=== PATIENT | female | born 1985 | race Native Hawaiian/Other Pacific Islander ===

== ENCOUNTER → 2020-12-07 | Outpatient (CLI) | payer BC ==
--- NOTE | 2020-12-07 11:27 | Diagnostic Imaging Report ---
INDICATION: anatomic survey. TECHNIQUE: Multiple real-time grayscale images were obtained over the gravid uterus. COMPARISON: None CLINICAL DATES: Gestational age 20 weeks, 2 days, with an DOLLY of 04/24/2021 Number: Single live intrauterine Presentation: Cephalic Placenta: Posterior and low-lying Amniotic Fluid: JAIMIE is within normal limits. The total JAIMIE is 12.9 cm. The largest vertical pocket is 4.4 cm. Biometrical measurements are as follows: Biparietal 4.52 cm, age 19 weeks 5 days. Head circumference 17.37 cm, age 20 weeks 0 days. Abdominal circumference 14.49 cm, age 19 weeks 6 days. Femur length 3.17 cm, age 19 weeks 6 days. Sonographic estimate age: 19 weeks 6 days. Sonographic estimated date of delivery: 04/27/2021. Estimated Weight: 316 gm (+/- 46 gm). LMP percentile: 23%. heart rate: 146 beats per minute. number: 1 of 1. Cerebellum: visualized Lateral ventricles: visualized Cavum septum pellucidum: visualized Nasal Bone: visualized Face: visualized Stomach: visualized Kidneys: visualized Bladder: visualized Three vessel cord: visualized Cord insertion: visualized 4 chamber heart: visualized outflow tracts: Not well visualized Spine, upper: visualized Spine, lower: visualized Upper extremities: visualized Lower extremities: visualized Hands: Visualized, however not all fingers are well seen. Feet: Visualized, however not all toes are well seen. The cervical length measures 5.5 cm. No evidence of funneling. The bilateral adnexa have a normal appearance. No evidence of mass or free fluid. IMPRESSION: 1. Single live intrauterine at approximately 19 weeks, 6 days, with an DOLLY of 04/27/2021. These are within range with clinical dates. 2. The outflow tracts are not well visualized due to position. Otherwise, anatomic structures are visualized and have a normal appearance. Recommend followup as indicated. 3. Posterior and low lying placenta without evidence of previa. Recommend attention on followup. Dictated by: Dictated on workstation # [id number]
== END ==
LOC: RAD 09:15
PROVIDERS: ATTEND Obstetrics & Gynecology
DX: Z34.02 Encounter for supervision of normal first pregnancy, second trimester (principal); Z3A.19 19 weeks gestation of pregnancy
CPT/HCPCS: 76805

== ENCOUNTER 2021-04-19 06:05 | Inpatient (IN) | payer BC ==
[2021-04-19] VITALS (45 sets, daily range): BP systolic 85–144; BP diastolic 49–77
[2021-04-19 06:48] LABS: BILIRUBIN,URINE NEGATIVE (NEGATIVE); CLARITY,URINE CLEAR; COLOR,URINE YELLOW; GLUCOSE, URINE (UA) NEGATIVE (NEGATIVE); KETONES,URINE NEGATIVE (NEGATIVE); LEUKOCYTE ESTERASE ,URINE 1+ (NEGATIVE); NITRITE,URINE NEGATIVE (NEGATIVE); PROTEIN,URINE NEGATIVE (NEGATIVE)
[2021-04-19 06:53] LABS: BASOPHILS % (AUTO) 0 % (0-10); EOSINOPHILS % (AUTO) 1 % (0-10); HEMATOCRIT 37 % (35-52); HEMOGLOBIN 12.5 g/dL (11.5-16.0); LYMPHOCYTES # (AUTO) 0.9 10^3/uL (1.0-4.0); LYMPHOCYTES % (AUTO) 14 % (12-44); MEAN CORPUSCULAR HEMOGLOBIN 30 pg (25-34); MEAN CORPUSCULAR HGB CONC 34 g/dL (32-36); MEAN CORPUSCULAR VOLUME 89 fL (80-99); MEAN PLATELET VOLUME 9.7 fL (9.0-12.2); MONOCYTES # (AUTO) 0.5 10^3/uL (0.0-1.0); MONOCYTES % (AUTO) 8 % (0-12); NEUTROPHILS # (AUTO) 5.3 10^3/uL (1.8-7.8); NEUTROPHILS % (AUTO) 77 % (42-75); PLATELET COUNT 260 10^3/uL (130-400); WHITE BLOOD COUNT 6.9 10^3/uL (4.3-11.0)
[2021-04-19 07:11] LABS: BACTERIA,URINE TRACE /HPF
[2021-04-19] MEDS: D5 LR IV SOLUTION 1,000 ML IV SCH ×2 (07:35→13:14)
[2021-04-19] MEDS ORDERED: OXYTOCIN PRE-MIX DRIP 500 ML IV SCH (08:30)
--- NOTE | 2021-04-19 09:33 | History & Physical-OB ---
LIANE TINOCO A MED STUDENT 04/19/21 0933: OB - Chief Complaint & HPI Date/Time Date of Admission: Date of Admission: Apr 19, 2021 at 06:05 Date seen by a Provider: Apr 19, 2021 Chief Complaint/History OB-Reason for Admission/Chief: Induction of Labor Hx : 3 Hx Para: 1 Expected Date of Delivery: Apr 24, 2021 Gestational Age in Weeks: 39 Gestational Age in Days: 2 Indication for induction: other (39 weeks gestation) History of Labs GBS negative, Rubella Non-Immune Allergies and Home Medications Allergies Coded Allergies: No Known Drug Allergies (Unverified , 04/19/21) Home Medications No Active Prescriptions or Reported Meds OB - History Hx of Present Care: Yes Ultrasounds: Normal mid trimester US Obstetrical Complications: None Medical Complications: None Obstetrical History Hx : 3 Hx Para: 1 Hx # Term Pregnancies: 1 Hx # Pregnancies: 0 Number of Living Children: 1 Hx Termination: No Hx Total # of Abortions (Spona: 1 OB - Admission Exam Physical Exam Vitals: Vital Signs 04/19/21 04/19/21 06:25 08:00 Temp 37.0 Pulse 83 Resp 18 B/P (MAP) 113/51 (71) Pulse Ox 97 O2 Delivery Room Air HEENT: NCAT Heart: Rhythm Normal Abdomen: Gravid Cervical Dilatation: 2cm Effacement: Other (60%) Station: -1 Membranes: Ruptured (AROM) Heart Rate: 150's (Moderate variability) Wilson Scoring Tool (Modified) Dilation (cm): 1-2cm (1) Effacement (%): 51-79% (2) Descent/Station: -1,0 (2) Cervix Consistency: Soft (2) Cervix Position: Anterior (2) Add 1 point for: Each previous vaginal delivery (1) Wilson Score: 10 Labs Laboratory Tests Test 04/19/21 06:20 04/19/21 06:30 Range/Units Urine Color YELLOW Urine Clarity CLEAR Urine pH 7.0 5-9 Urine Specific [place] 1.015 L 1.016-1.022 Urine Protein NEGATIVE NEGATIVE Urine Glucose (UA) NEGATIVE NEGATIVE Urine Ketones NEGATIVE NEGATIVE Urine Nitrite NEGATIVE NEGATIVE Urine Bilirubin NEGATIVE NEGATIVE Urine Urobilinogen 0.2 < = 1.0 MG/DL Urine Leukocyte Esterase 1+ H NEGATIVE Urine RBC (Auto) NEGATIVE NEGATIVE Urine RBC NONE /HPF Urine WBC 2-5 /HPF Urine Squamous Epithelial Cells 2-5 /HPF Urine Crystals NONE /LPF Urine Bacteria TRACE /HPF Urine Casts NONE /LPF Urine Mucus NEGATIVE /LPF Urine Culture Indicated NO White Blood Count 6.9 4.3-11.0 10^3/uL Red Blood Count 4.17 3.80-5.11 10^6/uL Hemoglobin 12.5 11.5-16.0 g/dL Hematocrit 37 35-52 % Mean Corpuscular Volume 89 80-99 fL Mean Corpuscular Hemoglobin 30 25-34 pg Mean Corpuscular Hemoglobin Concent 34 32-36 g/dL Red Cell Distribution Width 12.9 10.0-14.5 % Platelet Count 260 130-400 10^3/uL Mean Platelet Volume 9.7 9.0-12.2 fL Immature Granulocyte % (Auto) 1 % Neutrophils (%) (Auto) 77 H 42-75 % Lymphocytes (%) (Auto) 14 12-44 % Monocytes (%) (Auto) 8 0-12 % Eosinophils (%) (Auto) 1 0-10 % Basophils (%) (Auto) 0 0-10 % Neutrophils # (Auto) 5.3 1.8-7.8 10^3/uL Lymphocytes # (Auto) 0.9 L 1.0-4.0 10^3/uL Monocytes # (Auto) 0.5 0.0-1.0 10^3/uL Eosinophils # (Auto) 0.0 0.0-0.3 10^3/uL Basophils # (Auto) 0.0 0.0-0.1 10^3/uL Immature Granulocyte # (Auto) 0.0 0.0-0.1 10^3/uL OB - Assessment/Plan/Diagnosis Assessment Assessment: induction of labor (39 weeks gestation) Admission Dx Induction of Labor Admission Status: Inpatient Order (span 2 midnights) Reason for Inpatient Admission: Induction of Labor Plan Plan: Induction Induction Method: per Pitocin Protocol (AROM) ABIMAEL DOMINIQUE DO 04/19/21 1626: OB - Chief Complaint & HPI Date/Time Date seen by a Provider: Apr 19, 2021 Time Seen by a Provider: 07:30 Chief Complaint/History OB-Reason for Admission/Chief: Induction of Labor Hx : 3 Hx Para: 1 Expected Date of Delivery: Apr 24, 2021 Gestational Age in Weeks: 39 Gestational Age in Days: 2 Admission Nurse Assessment Rev: Yes Allergies and Home Medications Allergies Coded Allergies: No Known Drug Allergies (Unverified , 04/19/21) Home Medications No Active Prescriptions or Reported Meds Patient Home Medication List Home Medication List Reviewed: Yes OB - History Hx of Present Care: Yes Ultrasounds: Normal mid trimester US Obstetrical Complications: None Medical Complications: None Patient Past Medical History n/a OB - Admission Exam Physical Exam HEENT: NCAT Heart: Rhythm Normal Lungs: Clear Abdomen: Gravid Extremities: Normal Reflexes: Normal Cervical Dilatation: 2cm Effacement: 75% Station: -1 Membranes: Intact Heart Rate: 130's Accelerations: Accelerations Present Decelerations: No Decelerations Short Term Variability: Present Hospital Technician Variability: Average (6-25) Contractions on Admission: 6-10 Minutes Apart Intensity: Mild Wilson Scoring Tool (Modified) Dilation (cm): 3-4cm (2) Effacement (%): 51-79% (2) Descent/Station: -1,0 (2) Cervix Consistency: Soft (2) Cervix Position: Anterior (2) Wilson Score: 11 OB - Assessment/Plan/Diagnosis Assessment Assessment: induction of labor Admission Dx 35 yo @ 39 week Induction of labor Admission Status: Inpatient Order (span 2 midnights) Reason for Inpatient Admission: IOL at 39 weeks Plan Induction Method: per Pitocin Protocol (AROM) LIANE TINOCO MED STUDENT Apr 19, 2021 09:33 ABIMAEL DOMINIQUE DO Apr 19, 2021 16:26
[2021-04-19] MEDS ORDERED: fentaNYL 2 mcg/ml BUPIVA 0.125 100 ML ONE (12:02)
[2021-04-19] MEDS ORDERED: fentaNYL INJ 100 MCG/2 ML AMP ONE (12:24)
[2021-04-19] MEDS ORDERED: BUPIVACAINE 0.25% 30 ML (SENSORCAINE) VIAL ONE (12:24)
[2021-04-19] MEDS ORDERED: NALOXONE 0.4 MG/ML 1 ML (NARCAN) VIAL IV PRN (12:30)
[2021-04-19] MEDS ORDERED: fentaNYL 2 mcg/ml BUPIVA 0.125 100 ML IV SCH (12:30)
[2021-04-19] MEDS ORDERED: LACTATED RINGERS 1,000 ML IV ONE (12:30)
[2021-04-19] MEDS ORDERED: CATHETER FLUSH 10 ML SYR IV PRN (12:30)
[2021-04-19] MEDS ORDERED: CATHETER FLUSH 10 ML SYR IV SCH ×2 (14:00→22:00)
[2021-04-19] MEDS ORDERED: LIDOCAINE/EPI 2% 1:200,00 (XYLOCAINE) 20 ML VIAL ONE (15:55)
[2021-04-19] MEDS ORDERED: HYDROcodone/APAP 5 MG/325 MG (LORTAB) TAB PO PRN (16:30)
[2021-04-19] MEDS ORDERED: BENZOCAINE/MENTHOL (DERMOPLAST) 56 ML CAN TP PRN (16:30)
[2021-04-19] MEDS ORDERED: WITCH HAZEL(TUCKS) 40 EA JAR TOP PRN (16:30)
[2021-04-19] MEDS ORDERED: TETANUS,DIPTH,PERTUSS P/F (BOOSTRIX) 0.5 ML VIAL IM ONE (16:30)
[2021-04-19] MEDS ORDERED: DIBUCAINE 1% OINTMENT 30 GM TUBE TOP PRN (16:30)
[2021-04-19] MEDS ORDERED: MEASLES,MUMPS,RUBELLA 1 EA INJ SQ ONE (16:30)
--- NOTE | 2021-04-19 16:31 | OB Labor & Delivery Record ---
L&D History Date of Service Date of Service: Apr 19, 2021 History Expected Date of Delivery: Apr 24, 2021 Gestational Age in Weeks: 39 Hx : 3 Hx Para: 1 Complications Events: Routine care Operative Indications (Cesarea: N/A-Vaginal Delivery Intrapartal Events: None L&D Stage1 Stage One Onset of Labor - Date: Apr 19, 2021 Monitors and Tracing Monitor Mode: External Heart Rate: 130 Monitor Accelerations: Uniform Monitor Decelerations: None Station: -1 Rn Dialysis Variability: Average (6-10) Short Term Variability: Present Presentation: Vertex Vital Signs VS - Last 72 Hours, by Label 04/19/21 04/19/21 04/19/21 04/19/21 06:25 06:25 08:00 08:45 Temp 37.0 37.0 37.0 Pulse 82 82 83 84 Resp 18 18 18 18 B/P (MAP) 116/64 (81) 113/51 (71) 105/65 (78) Pulse Ox 97 97 O2 Delivery Room Air 04/19/21 04/19/21 04/19/21 04/19/21 09:00 09:15 09:30 09:45 Pulse 82 78 82 Resp 18 18 18 B/P (MAP) 103/64 (77) 119/69 (86) 106/65 (79) 04/19/21 04/19/21 04/19/21 04/19/21 10:00 10:15 10:30 10:45 Pulse 74 76 75 74 Resp 18 18 18 18 B/P (MAP) 108/65 (79) 128/77 (94) 103/62 (76) 103/65 (78) 04/19/21 04/19/21 04/19/21 04/19/21 11:00 11:15 11:30 11:45 Temp 36.8 Pulse 79 78 77 73 Resp 18 18 18 18 B/P (MAP) 109/66 (80) 102/67 (79) 115/65 (82) 112/65 (81) 04/19/21 04/19/21 04/19/21 04/19/21 12:00 12:15 12:30 12:40 Pulse 73 75 85 Resp 18 18 18 B/P (MAP) 125/73 (90) 120/72 (88) 116/73 (87) Pulse Ox 98 04/19/21 04/19/21 04/19/21 04/19/21 12:45 12:50 12:53 12:56 Temp 37.0 Pulse 83 76 102 75 Resp 18 18 18 18 B/P (MAP) 109/55 (73) 98/55 (69) 101/55 (70) 94/50 (65) Pulse Ox 99 98 99 99 04/19/21 04/19/21 04/19/21 04/19/21 13:00 13:02 13:05 13:08 Pulse 75 75 73 68 Resp 18 18 18 18 B/P (MAP) 94/52 (66) 87/52 (64) 95/55 (68) 102/59 (73) Pulse Ox 97 99 99 99 04/19/21 04/19/21 04/19/21 04/19/21 13:10 13:15 13:30 13:45 Pulse 64 79 70 73 Resp 18 18 18 18 B/P (MAP) 110/56 (74) 98/49 (65) 91/55 (67) Pulse Ox 98 98 97 96 04/19/21 04/19/21 04/19/21 04/19/21 14:00 14:15 14:30 14:45 Temp 37.3 Pulse 77 77 67 76 Resp 18 18 18 18 B/P (MAP) 94/52 (66) 92/54 (67) 85/53 (64) 100/57 (71) Pulse Ox 96 04/19/21 04/19/21 15:00 15:15 Pulse 78 65 Resp 18 18 B/P (MAP) 106/66 (79) 100/63 (75) Rupture of Membranes Spontaneous Ruture of Membrane: No Amniotic Membrane Rupture Time: 1130 Amniotic Membrane Fluid Desc.: Clear Vaginal Bleeding Description: Normal Show Induction/Anesthesia Epidural Cath Placement - Time: 1238 Progress/Notes Patient admitted AROM performed this AM and pitocin augmentation started. She received an epidural and progressed to complete and +2 station with max dose of 12 mu pitocin reached. L&D Stage2 Stage Two Stage II Date: Apr 19, 2021 Monitors and Tracing Monitor Mode: External Heart Rate: 130 Monitor Accelerations: Uniform Monitor Decelerations: Early Rn Dialysis Variability: Average (6-10) Short Term Variability: Present Position: Right Occiput Anterior Presentation: Vertex Cord Descript/Complications Cord Vessel Description: 3 Vessels Delivery Type Infant Delivery Method: Spontaneous Vaginal Anterior Shoulder: Left, Right Episiotomy/Perineal Laceration Laceraction(s)/Extensions: Yes Episiotomy Description: Perineal Extension/lac, 2nd degree Degree (describe repair) 2nd degree perineal laceration repaired using 3-0 rapide in usual fashion. Condition of Infant Delivery 1 minute Comment: 8 5 minute Comment: 9 Notes Live female weight 6lbs 8 oz Condition of Condition of : Living Exam: No Observed Abnormalities Resuscitation Resuscitation: N/A - Spontaneous Resp L&D Stage3 Stage Three Stage III Date: Apr 19, 2021 Pictocin Pitocin Administration mu/min: 12 Pitocin ml/hr: 12 Pitocin Administration Comment: 1450 pitocin increased Placenta Delivery Placenta Delivery: Spontaneous Delivery Summary Summary Estimated blood loss (mL): 200 Attending at delivery: Abimael Dominique DO Condition of Delivery Examined: Cervix Examined, Uterus Explored Post Hemorrhage: No Condition of Mother stable Condition of (s) stable ABIMAEL DOMINIQUE DO Apr 19, 2021 16:31
[2021-04-19] MEDS: OXYTOCIN PRE-MIX DRIP 500 ML IV SCH (17:25)
[2021-04-19] MEDS: IBUPROFEN 600 MG (MOTRIN) TAB PO SCH (17:25)
[2021-04-20 00:19] VITALS: BP 125/65
[2021-04-20] MEDS: IBUPROFEN 600 MG (MOTRIN) TAB PO SCH ×4 (00:19→17:58)
[2021-04-20] MEDS: DOCUSATE SODIUM 100 MG (COLACE) CAP PO SCH ×2 (00:19→10:08)
[2021-04-20 06:17] LABS: BASOPHILS % (AUTO) 0 % (0-10); EOSINOPHILS # (AUTO) 0.1 10^3/uL (0.0-0.3); EOSINOPHILS % (AUTO) 1 % (0-10); HEMATOCRIT 36 % (35-52); HEMOGLOBIN 11.7 g/dL (11.5-16.0); LYMPHOCYTES # (AUTO) 1.3 10^3/uL (1.0-4.0); LYMPHOCYTES % (AUTO) 11 % (12-44); MEAN CORPUSCULAR HEMOGLOBIN 30 pg (25-34); MEAN CORPUSCULAR HGB CONC 33 g/dL (32-36); MEAN CORPUSCULAR VOLUME 91 fL (80-99); MONOCYTES # (AUTO) 0.8 10^3/uL (0.0-1.0); MONOCYTES % (AUTO) 7 % (0-12); NEUTROPHILS # (AUTO) 9.6 10^3/uL (1.8-7.8); NEUTROPHILS % (AUTO) 81 % (42-75); PLATELET COUNT 236 10^3/uL (130-400); WHITE BLOOD COUNT 11.8 10^3/uL (4.3-11.0)
[2021-04-20 06:22] VITALS: BP 92/50
[2021-04-20] MEDS ORDERED: FERROUS SULF 325 MG (IRON) TAB PO SCH (09:00)
--- NOTE | 2021-04-20 09:01 | Postpartum Progress Note ---
Note Note Day # 1 Subjective: Patient is without complaints. Ambulating, voiding. Tolerating a regular diet without nausea or vomiting. Normal lochia. Pain is well controlled with oral pain medications. Objective: Physical Exam: General - Alert and oriented, no apparent distress Abdomen - Soft, appropriately tender to palpation, non-distended, fundus firm at umbilicus Extremities - no edema, negative Magno's bilaterally Assessment: PPD 1 NVD Plan: Routine care. Encourage breast feeding. Encourage ambulation. Ferrous sulfate supplementation. Plan for discharge today Vitals - Labs Vital Signs - I&O Vital Signs Date Time Temp Pulse Resp B/P (MAP) Pulse Ox O2 Delivery O2 Flow Rate FiO2 04/20/21 06:22 37.0 63 18 92/50 (64) 97 04/20/21 00:19 36.8 71 18 125/65 (85) 97 04/19/21 19:30 36.7 86 18 104/53 (70) 96 04/19/21 17:36 94 18 128/69 (88) 04/19/21 17:22 86 18 144/65 (91) 04/19/21 17:06 81 18 114/77 (89) 04/19/21 16:51 81 18 114/70 (85) 04/19/21 16:36 36.9 99 18 117/74 (88) 04/19/21 16:21 37.5 82 18 108/67 (81) 04/19/21 16:09 85 18 121/62 (81) 04/19/21 16:00 78 18 101/57 (72) 04/19/21 15:45 81 18 108/68 (81) 04/19/21 15:30 71 18 102/62 (75) 04/19/21 15:15 65 18 100/63 (75) 04/19/21 15:00 78 18 106/66 (79) 04/19/21 14:45 37.3 76 18 100/57 (71) 04/19/21 14:30 67 18 85/53 (64) 04/19/21 14:15 77 18 92/54 (67) 04/19/21 14:00 77 18 94/52 (66) 96 04/19/21 13:45 73 18 91/55 (67) 96 04/19/21 13:30 70 18 98/49 (65) 97 04/19/21 13:15 79 18 98 04/19/21 13:10 64 18 110/56 (74) 98 04/19/21 13:08 68 18 102/59 (73) 99 04/19/21 13:05 73 18 95/55 (68) 99 04/19/21 13:02 75 18 87/52 (64) 99 04/19/21 13:00 75 18 94/52 (66) 97 04/19/21 12:56 75 18 94/50 (65) 99 04/19/21 12:53 102 18 101/55 (70) 99 04/19/21 12:50 76 18 98/55 (69) 98 04/19/21 12:45 37.0 83 18 109/55 (73) 99 04/19/21 12:40 85 18 116/73 (87) 98 04/19/21 12:30 75 18 120/72 (88) 04/19/21 12:15 73 18 125/73 (90) 04/19/21 12:00 04/19/21 11:45 73 18 112/65 (81) 04/19/21 11:30 36.8 77 18 115/65 (82) 04/19/21 11:15 78 18 102/67 (79) 04/19/21 11:00 79 18 109/66 (80) 04/19/21 10:45 74 18 103/65 (78) 04/19/21 10:30 75 18 103/62 (76) 04/19/21 10:15 76 18 128/77 (94) 04/19/21 10:00 74 18 108/65 (79) 04/19/21 09:45 04/19/21 09:30 82 18 106/65 (79) 04/19/21 09:15 78 18 119/69 (86) I & O 04/20/21 07:00 Intake Total 2000 ml Balance 2000 ml Labs Laboratory Tests 04/20/21 05:28: White Blood Count 11.8H, Red Blood Count 3.92, Hemoglobin 11.7, Hematocrit 36, Mean Corpuscular Volume 91, Mean Corpuscular Hemoglobin 30, Mean Corpuscular Hemoglobin Concent 33, Red Cell Distribution Width 12.9, Platelet Count 236, Mean Platelet Volume 10.0, Immature Granulocyte % (Auto) 0, Neutrophils (%) (Auto) 81H, Lymphocytes (%) (Auto) 11L, Monocytes (%) (Auto) 7, Eosinophils (%) (Auto) 1, Basophils (%) (Auto) 0, Neutrophils # (Auto) 9.6H, Lymphocytes # (Auto) 1.3, Monocytes # (Auto) 0.8, Eosinophils # (Auto) 0.1, Basophils # (Auto) 0.0, Immature Granulocyte # (Auto) 0.1 ABIMAEL DOMINIQUE DO Apr 20, 2021 09:01
--- NOTE | 2021-04-20 09:18 | Discharge Inst-Women's Service ---
Discharge Inst-Women's Serv Depart Medication/Instructions New, Converted or Re-Newed RX: RX on Chart Final Diagnosis PPD 1 NVD Problems Reviewed?: Yes Consults/Follow Up Additional Follow Up: Yes Orders/Referrals Dr. Dominique in 6 weeks Activity Activity: Activity as Tolerated Driving Instructions: No Driving for 1 Week NO SMOKING: NO SMOKING Nothing Inside Vagina: No Douching, No [place], No Tampons Diet Discharge Diet: No Restrictions Symptoms to Report to : Bleeding Excessive, Pain Increased, Fever Over 101 Degrees F, Vaginal Bleeding Increase, Questions/Concerns For Any Problems or Questions: Contact Your Physician ABIMAEL DOMINIQUE DO Apr 20, 2021 09:18
[2021-04-20] MEDS ORDERED: DCS100C PO (09:20)
[2021-04-20] MEDS ORDERED: DIBU30OI TOP (09:20)
[2021-04-20] MEDS ORDERED: BENZ78AE5 TP (09:20)
[2021-04-20] MEDS ORDERED: IBUP-844 PO (09:20)
[2021-04-20] MEDS ORDERED: FERR325T24 PO (09:20)
[2021-04-20] MEDS ORDERED: ACHD5005 PO (09:20)
[2021-04-20 09:30] VITALS: BP 115/68
[2021-04-20] MEDS ORDERED: MEASLES,MUMPS,RUBELLA 1 EA INJ ONE (12:20)
[2021-04-20 12:30] VITALS: BP 115/79
--- NOTE | 2021-04-20 15:00 | Anesthesia-Regional Post-Op ---
Regional Patient Condition Mental Status: Alert, Oriented x3 Circulation: Same as Pre-Op Headache: Absent Sensation: Full Recovery Motor Block: Absent Post Op Complications Complications None Follow Up Care/Instructions Patient Instructions None needed. Anesthesia/Patient Condition Patient is doing well, no complaints, stable vital signs, no apparent adverse anesthesia problems. No complications reported per nursing. TERE HASSAN CRNA Apr 20, 2021 15:00
[2021-04-20 16:30] VITALS: BP 124/78
[2021-04-20 18:40] VITALS: BP 124/78
== END 2021-04-20 18:40 | disposition home or self-care (01) | DRG 807 ==
LOC: LDRP 06:05
PROVIDERS: ADMIT Obstetrics & Gynecology; ATTEND Obstetrics & Gynecology
PROC: 10E0XZZ Delivery of Products of Conception, External Approach (ICD-10-PCS; principal; 2021-04-19)
PROC: 0KQM0ZZ Repair Perineum Muscle, Open Approach (ICD-10-PCS; 2021-04-19)
PROC: 10907ZC Drainage of Amniotic Fluid, Therapeutic from Products of Conception, Via Natural or Artificial Opening (ICD-10-PCS; 2021-04-19)
DX: O70.1 Second degree perineal laceration during delivery (principal); Z37.0 Single live birth; Z3A.39 39 weeks gestation of pregnancy
CPT/HCPCS: 36415; 81000; 85025; 86850; 86900; 86901; 90707

== ENCOUNTER → 2023-04-28 | Outpatient (CLI) | payer BC ==
[~2023-04-28] MED LIST: ACHD5005 PO; BENZ78AE5 TP; DIBU30OI TOP; DOCU-239 PO; FERR325T24 PO; IBUP-1773 PO; IBUP-844 PO
--- NOTE | 2023-04-28 13:43 | Diagnostic Imaging Report ---
PROCEDURE: Pelvic comp/transvaginal sonogram. TECHNIQUE: Complete transabdominal and transvaginal pelvic ultrasound was performed. In addition, limited pelvic Doppler was performed. INDICATION: Abnormal uterine bleeding. No prior studies are available for comparison. FINDINGS: Uterus is anteverted measuring 8.8 x 3.6 x 4.6 cm. Endometrium is 4 mm in thickness. No myometrial mass is detected. Right ovary measures 2.8 x 0.8 x 1.5 cm, and the left ovary measures 1.5 x 1.0 x 1.7 cm. Both ovaries demonstrate blood flow. No adnexal mass or free pelvic fluid is detected. IMPRESSION: Unremarkable transabdominal and transvaginal pelvic ultrasound with limited pelvic Doppler. Dictated by: Dictated on workstation # [id number]
== END ==
LOC: RAD 12:03
PROVIDERS: ATTEND Obstetrics & Gynecology
DX: N93.9 Abnormal uterine and vaginal bleeding, unspecified (principal)
CPT/HCPCS: 76830; 76856

== ENCOUNTER 2023-06-16 05:31 | Outpatient (CLI) | payer BC ==
[~2023-06-16] VITALS: Ht 165.1 cm; Wt 95.0 kg
== END 2023-06-16 15:58 | disposition home or self-care (01) ==
LOC: PREOP 05:31
PROVIDERS: ATTEND Obstetrics & Gynecology
DX: Z01.818 Encounter for other preprocedural examination (principal)

== ENCOUNTER 2023-06-23 05:49 | Day surgery (SDC) | payer BC ==
[2023-06-23] VITALS (11 sets, daily range): BP systolic 93–131; BP diastolic 57–91
[~2023-06-23] VITALS: Ht 165.1 cm; Wt 95.0 kg
[2023-06-23] MEDS ORDERED: LACTATED RINGERS 1,000 ML 1,000 ML IV PRN (06:45)
[2023-06-23] MEDS ORDERED: proPOfol INJECTION 200 MG/20 ML VIAL IV ONE (07:01)
[2023-06-23] MEDS ORDERED: LIDOCAINE PF 2% 5 ML VIAL ONE (07:01)
[2023-06-23] MEDS ORDERED: dexAMETHasone INJ 10 MG/ML 1 ML VIAL ONE (07:01)
[2023-06-23] MEDS ORDERED: ONDANSETRON INJECTION 4 MG/2 ML (SDV) ONE (07:01)
[2023-06-23] MEDS ORDERED: fentaNYL INJECTION 100 MCG/2 ML VIAL ONE (07:02)
[2023-06-23] MEDS ORDERED: MIDAZOLAM INJ 2 MG/2 ML VIAL ONE (07:02)
[2023-06-23] MEDS ORDERED: BUPIVACAINE 0.25% 30 ML VIAL ONE (07:04)
--- NOTE | 2023-06-23 07:11 | Progress Note-Pre Operative ---
Pre-Operative Progress Note Date of Available H&P: Jun 23, 2023 Date H&P Reviewed: Jun 23, 2023 Time H&P Reviewed: 07:10 History & Physical: H&P Reviewed, Patient Examed, No changes noted Pre-Operative Diagnosis: ADENIKEB-ABIMAEL Robin DO Jun 23, 2023 07:11
[2023-06-23] MEDS ORDERED: ACHD5005 PO (07:13)
[2023-06-23] MEDS ORDERED: IBUP-1773 PO (07:13)
--- NOTE | 2023-06-23 07:13 | Discharge Inst-Women's Service ---
Discharge Inst-Women's Serv Depart Medication/Instructions New, Converted or Re-Newed RX: Transmitted to Pharmacy Problems Reviewed?: Yes Consults/Follow Up Additional Follow Up: Yes Activity Activity: Activity as Tolerated Driving Instructions: You May Drive (no driving today) NO SMOKING: NO SMOKING Nothing Inside Vagina: No Douching, No [place], No Tampons Diet Discharge Diet: No Restrictions Symptoms to Report to : Bleeding Excessive, Pain Increased, Fever Over 101 Degrees F, Vaginal Bleeding Increase, Questions/Concerns Increased amounts of clear to brown appearing discharge is normal during healing process. For Any Problems or Questions: Contact Your Physician ABIMAEL DOMINIQUE DO Jun 23, 2023 07:13
[2023-06-23] MEDS ORDERED: HYDROcodone/ACETAMINOPHEN 5 MG/325 MG TABLET PO PRN (07:15)
[2023-06-23] MEDS ORDERED: D5 LR 1,000 ML IV SOLN 1,000 ML IV SCH (07:15)
[2023-06-23] MEDS ORDERED: ONDANSETRON INJECTION 4 MG/2 ML (SDV) IVP PRN ×2 (07:15→08:15)
[2023-06-23] MEDS ORDERED: KETOROLAC INJ 30 MG/ML VIAL IVP ONE (07:15)
[2023-06-23 07:24] LABS: BASOPHILS # (AUTO) 0.1 10^3/uL (0.0-0.1); BASOPHILS % (AUTO) 1 % (0-10); EOSINOPHILS # (AUTO) 0.1 10^3/uL (0.0-0.3); EOSINOPHILS % (AUTO) 2 % (0-10); HEMATOCRIT 41 % (35-52); HEMOGLOBIN 13.7 g/dL (11.5-16.0); LYMPHOCYTES # (AUTO) 1.2 10^3/uL (1.0-4.0); LYMPHOCYTES % (AUTO) 24 % (12-44); MEAN CORPUSCULAR HEMOGLOBIN 29 pg (25-34); MEAN CORPUSCULAR HGB CONC 34 g/dL (32-36); MEAN CORPUSCULAR VOLUME 86 fL (80-99); MEAN PLATELET VOLUME 9.6 fL (9.0-12.2); MONOCYTES # (AUTO) 0.5 10^3/uL (0.0-1.0); MONOCYTES % (AUTO) 10 % (0-12); NEUTROPHILS % (AUTO) 63 % (42-75); PLATELET COUNT 244 10^3/uL (130-400); WHITE BLOOD COUNT 4.8 10^3/uL (4.3-11.0)
[2023-06-23] MEDS ORDERED: SEVOFLURANE (ULTANE) 15 ML INHAL SOLN ONE (07:51)
--- NOTE | 2023-06-23 08:12 | Anesthesia-General Post-Op ---
General Patient Condition Mental Status/LOC: Same as Preop Cardiovascular: Satisfactory Nausea/Vomiting: Absent Respiratory: Satisfactory Pain: Controlled Complications: Absent Post Op Complications Complications None Follow Up Care/Instructions Patient Instructions None needed. Anesthesia/Patient Condition Patient Condition Patient is doing well, no complaints, stable vital signs, no apparent adverse anesthesia problems. No complications reported per nursing. ANALILIA JUNIOR DO Jun 23, 2023 08:12
[2023-06-23] MEDS ORDERED: morphine INJ 10 MG/ML 1ML (SYR OR VIAL) IVP ONE (08:15)
[2023-06-23] MEDS ORDERED: BUPIVACAINE 0.25% 30 ML VIAL INJ ONE (08:23)
--- NOTE | 2023-06-23 18:02 | OPERATIVE REPORT ---
DATE OF SERVICE: 06/23/2023 PREOPERATIVE DIAGNOSES: 1. A 38-year-old female with abnormal uterine bleeding. 2. History of tubal ligation. POSTOPERATIVE DIAGNOSES: 1. A 38-year-old female with abnormal uterine bleeding. 2. History of tubal ligation. PROCEDURE: D and C, hysteroscopy with Camila endometrial ablation. SURGEON: Laith Vila DO ANESTHESIA: LMA general. ESTIMATED BLOOD LOSS: Minimal. URINE OUTPUT: 250 mL FLUIDS: 800 mL lactated Ringer's solution. FINDINGS: Grossly normal-appearing endometrial cavity. Grossly normal-appearing cervix and vaginal mucosa. SPECIMEN SENT: Endometrial curettings. INDICATIONS FOR PROCEDURE: This 38-year-old female is the patient who had sought care in my office on multiple occasions with abnormal uterine bleeding. She has tried more conservative measures without any improvement. She had also already undergone a tubal ligation as she did not desire any future pregnancies. I discussed with the patient proceeding with endometrial ablation versus hysterectomy. Risks of the procedure were discussed with the patient in detail. Risk of both were discussed and she agreed that the less aggressive measure would be appropriate for her. So we decided to proceed with endometrial ablation. Risks of procedure were discussed with the patient in detail and after all questions were answered, consent was obtained in the preoperative area. The patient was taken to the operating room. OPERATIVE DESCRIPTION IN DETAIL: Once in the operating room, anesthesia was administered and found to be adequate. She was placed in dorsal lithotomy position, prepped and draped in normal sterile fashion. A timeout was performed. A weighted speculum inserted to the patient's vagina. Right angle retractor was utilized. Cervix was grasped at 12 o'clock position using a long Allis clamp. I then performed a paracervical block at 3 and 9 o'clock positions on the cervix. Care was taken to aspirate for injecting 5 mL of 0.25% Marcaine injected at each site. I then gently sound the uterine cavity, depth was found to be 8 cm. I then gently dilated the cervix using Hanks dilators to maximum dilatation approximately 6 mm, at which point I am able to advance the hysteroscope into the uterine cavity and document the uterine cavity with photodocumentation. There is no evidence of endometrial protrusions or abnormalities noted at that point. I then performed a gentle curettage using an endometrial curette at and collected these and sent these as endometrial curettings. I then performed a Camila endometrial ablation by setting the depth of the cavity to 5 cm, which is found too earlier on exam. The Camila device was deployed within the uterus. A safety check was administered to the patient. After a safety check was passed and seal was found to be adequate, the Camila device was activated to a standard 120 second ablation time after which it is completed. The Camila device was removed without difficulty. Repeat hysteroscopic exam using normal saline as my visual medium is done and adequate cauterization of the endometrial lining was noted and documented with video documentation. I then removed all instruments from the patient's vagina. The patient tolerated the procedure well and sent to recovery area in stable condition. Lap and sponge counts were correct at the end of the procedure. Instrument counts correct as well. Job ID: [id number] DocumentID: [id number] Dictated Date: 06/23/2023 09:10:19 Marine Oiler Date: 06/23/2023 17:59:00 Dictated By: DO RAJESH MONTANEZ
== END 2023-06-23 10:20 | disposition home or self-care (01) ==
LOC: SDC 05:49
PROVIDERS: ATTEND Obstetrics & Gynecology
DX: N93.9 Abnormal uterine and vaginal bleeding, unspecified (principal); Z98.51 Tubal ligation status; Z28.310 Unvaccinated for COVID-19; Z87.891 Personal history of nicotine dependence
CPT/HCPCS: 36415; 84703; 85025; 86850; 86900; 86901; 87081